=== PATIENT | male | born 1995 | race Caucasian/White ===

== ENCOUNTER 2019-12-22 17:44 | Emergency (ER) | payer BC ==
[2019-12-22] MEDS ORDERED: HALOPERIDOL LACTATE INJ 5 MG/1 ML VIAL IM ONE (19:37)
[2019-12-22] MEDS ORDERED: BENZTROPINE MESYLATE INJ 2 MG/2 ML AMPULE IM ONE (19:37)
--- NOTE | 2019-12-22 19:39 | ER Document Report ---
ED Psych Disorder / Suicide - General Chief Complaint: Psych Problem Stated Complaint: PSYCH ISSUE Time Seen by Provider: 12/22/19 18:58 Mode of Arrival: Ambulatory Information source: Patient Notes: 24-year-old male patient presents the emergency department with concerns for possible drug abuse. Patient's father brought patient here, patient's father reported to staff members that patient used to get high on cough and cold medication. His father states that he is acting similar to then. It is unknown if patient has any suicidal homicidal ideations as he is unable to be fully examined at this time. He is a flight of ideas, he keeps coming in and out of his room walking around yelling nonsensical things. Nursing staff tells me that patient has had previous hospitalization at [facility]. - Related Data Allergies/Adverse Reactions: No Known Allergies Allergy (Verified 12/22/19 19:01) Past Medical History - General Information source: Patient, Parent - Father - Social History Smoking Status: Current Every Day Smoker Frequency of alcohol use: None Drug Abuse: Marijuana, Other - synthetic drugs/cough medicine Family History: Reviewed & Not Pertinent Patient has homicidal ideation: No - Medical History Medical History: Negative Surgical Hx: Negative - Immunizations Immunizations up to date: Yes Review of Systems - Review of Systems -: Yes ROS unobtainable due to patient's medical condition Physical Exam - Vital signs Vitals: Temp Pulse Resp BP Pulse Ox 98.5 F 105 H 18 117/61 96 12/22/19 20:39 12/22/19 20:39 12/22/19 20:39 12/22/19 20:39 12/22/19 20:39 - Notes Notes: PHYSICAL EXAMINATION: GENERAL: Well-nourished and in no acute distress. HEAD: Atraumatic, normocephalic. EYES: Pupils equal round extraocular movements intact, conjunctiva are normal. ENT: Nares patent NECK: Normal range of motion LUNGS: No respiratory distress, lung sounds clear and equal bilaterally. Musculoskeletal: Normal range of motion NEUROLOGICAL: Normal speech, normal gait. PSYCH: Hyper, flight of ideas, pacing around the room in the hallway. SKIN: Warm, Dry, normal turgor, no rashes or lesions noted. Course - Re-evaluation Re-evalutation: 12/22/19 19:42 Unable to do a thorough physical examination on the patient at this time as patient is a flight of ideas and is very hyper and animated walking around his room and also out into the hallway. Medication orders placed. Patient will be given a physical examination as soon as safely able to. Orders placed for IVC. Psych team is initiating an IVC petition and will evaluate patient fully tomorr ow. 12/22/19 23:19 Patient is more calm now he has been resting comfortably with no acute distress. His potassium was 3. He did take the oral potassium as ordered. He is pending full psych evaluation in the morning. He is medically cleared at this time. - Vital Signs Vital signs: Temp Pulse Resp BP Pulse Ox 98.5 F 105 H 18 117/61 96 12/22/19 20:39 12/22/19 20:39 12/22/19 20:39 12/22/19 20:39 12/22/19 20:39 - Laboratory Result Diagrams: 12/22/19 20:20 12/22/19 20:20 Laboratory results interpreted by me: 12/22/19 20:20 Potassium 3.0 L* BUN 5 L Glucose 123 H Salicylates < 1.0 L Acetaminophen < 10 L Discharge - Discharge Clinical Impression: Bizarre behavior Condition: Stable Disposition: PSYCH HOSP/UNIT
--- NOTE | 2019-12-22 20:06 | PSYCHOLOGICAL NOTE ---
Psych Note - Psych Note Date seen by psych provider: 12/22/19 Time seen by psych provider: 17:45 - [facility] collateral at 1745. ED Nurse Collateral at 130. Observation at 1946. Psych Note: Patient presented to the Emergency Department this evening via POV/father for altered mental status after going to [facility] for inpatient hospitalization. [facility] admission staff (Eduardo) reported patient had dilated pupils and was unable to answer questions appropriately so was unable to complete their assessment. Father told [facility] staff patient "acted this way when he was abusing Dimethyltryptamine in the past." Patient shut himself in an Emergency Department room with cleaning staff, medical and security were immediately involved, got patient seated in chair in hallway and he started carrying on conversation with himself as if someone else were there. Patient appears to be under the influence of some substance which impairs insight, judgment and impulse control. Patient is a danger to self and others at this time. Observed patient in his ED room, sitting on side edge of bed, carrying on dialogue conversation as if talking with someone when he was the only person in the room. Clinical Presentation: Psychosis Medication recommendations made by the psychiatric medication provider, Dr. Ayan ASKEW., includes: Add Haldol 5MG PO/IM every 6 hours as needed for psychosis/agitation Add Cogentin 1MG PO/IM once daily to curb tremor side effects often associated with antipsychotic medications Impression/Plan: Recommendation for 24 Hour Petition for Evaluation given psychotic presentation. Consulted with Dr. Rasmussen regarding the management and care of patient. ED Physician in agreement with recommendations.
[2019-12-22 20:37] LABS: ABSOLUTE EOSINOPHILS # (AUTO) 0.1 10^3/uL (0.0-0.6); ABSOLUTE LYMPHOCYTES (AUTO) 2.3 10^3/uL (0.5-4.7); ABSOLUTE MONOCYTES (AUTO) 0.7 10^3/uL (0.1-1.4); ABSOLUTE NEUT (AUTO) 7.1 10^3/uL (1.7-8.2); BASOPHILS % (AUTO) 0.3 % (0-2); EOSINOPHILS % (AUTO) 0.6 % (0-6); HEMOGLOBIN 15.7 g/dL (13.5-17.0); LYMPHOCYTES % (AUTO) 22.5 % (13-45); MEAN CORPUSCULAR HEMOGLOBIN 30.6 pg (27.0-33.4); MEAN CORPUSCULAR HGB CONC 34.8 g/dL (32.0-36.0); MEAN CORPUSCULAR VOLUME 88 fl (80-97); MONOCYTES % (AUTO) 6.5 % (3-13); PLATELET COUNT 211 10^3/uL (150-450); RED BLOOD COUNT 5.12 10^6/uL (4.35-5.55); RED CELL DISTRIBUTION WIDTH 13.2 % (11.5-14.0); SEGMENTED NEUTROPHILS % (AUTO) 70.1 % (42-78); TOTAL CELLS COUNTED % (AUTO) 100 %; WHITE BLOOD COUNT 10.1 10^3/uL (4.0-10.5)
[2019-12-22 20:42] LABS: APPEARANCE,URINE CLEAR; BILIRUBIN,URINE NEGATIVE (NEGATIVE); COLOR,URINE YELLOW; GLUCOSE, URINE NEGATIVE (NEGATIVE); KETONES,URINE NEGATIVE (NEGATIVE); LEUKOCYTE ESTERASE,URINE NEGATIVE (NEGATIVE); NITRITE,URINE NEGATIVE (NEGATIVE); PROTEIN,URINE NEGATIVE (NEGATIVE); URINE SPECIFIC GRAVITY 1.006; UROBILINOGEN,URINE NEGATIVE mg/dL (<2.0)
[2019-12-22 20:54] LABS: URINE AMPHETAMINES SCREEN NEGATIVE; URINE BARBITURATES SCREEN NEGATIVE; URINE BENZODIAZEPINES SCREEN NEGATIVE; URINE COCAINE SCREEN NEGATIVE; URINE METHADONE SCREEN NEGATIVE; URINE PHENCYCLIDINE SCREEN NEGATIVE
[2019-12-22 20:55] LABS: URINE MARIJUANA (THC) SCREEN UNCONFIRMED POSITIVE
[2019-12-22 21:59] LABS: ALBUMIN 4.5 g/dL (3.5-5.0); ALKALINE PHOSPHATASE 80 U/L (38-126); ANION GAP 12 (5-19); ASPARTATE AMINO TRANSFERASE 35 U/L (17-59); BILIRUBIN,TOTAL 0.7 mg/dL (0.2-1.3); BLOOD UREA NITROGEN 5 mg/dL (7-20); CALCIUM 9.5 mg/dL (8.4-10.2); CARBON DIOXIDE 24 mmol/L (22-30); CHLORIDE 101 mmol/L (98-107); GLUCOSE 123 mg/dL (75-110); TOTAL PROTEIN 7.2 g/dL (6.3-8.2)
[2019-12-22 22:02] LABS: ACETAMINOPHEN < 10 ug/mL (10-30); ALCOHOL < 10 mg/dL (NONE DETECTED); SALICYLATE < 1.0 mg/dL (2.0-20.0)
[2019-12-22] MEDS ORDERED: POTASSIUM CHLORIDE 10 MEQ TABLET.ER PO ONE (22:06)
[2019-12-22] MEDS ORDERED: BENZTROPINE MESYLATE 1 MG TABLET PO PRN (23:27)
[2019-12-22] MEDS ORDERED: HALOPERIDOL 5 MG TABLET PO PRN (23:27)
[2019-12-23 06:39] LABS: ANION GAP 9 (5-19); BLOOD UREA NITROGEN 8 mg/dL (7-20); CALCIUM 9.5 mg/dL (8.4-10.2); CARBON DIOXIDE 29 mmol/L (22-30); CHLORIDE 101 mmol/L (98-107); GLUCOSE 96 mg/dL (75-110); POTASSIUM 3.3 mmol/L (3.6-5.0)
--- NOTE | 2019-12-23 09:57 | EKG REPORT ---
SEVERITY:- OTHERWISE NORMAL ECG - SINUS ARRHYTHMIA, RATE [id number] : Confirmed by: Hai Shanks MD 23-Dec-2019 09:56:08
--- NOTE | 2019-12-23 21:13 | ER Document Report ---
Doctor's Note Notes: 12/23/19 21:11 PHYSICAL EXAMINATION: GENERAL: Appears well, healthy, well-nourished, no acute distress. LUNGS: Equal breath sounds bilaterally and clear to auscultation. No wheezes rales or rhonchi. CARDIOVASCULAR: S1-S2, regular rate, regular rhythm. Radial pulses 2+, normal. ABDOMEN: Normoactive bowel sounds. Soft, nontender, no guarding, no rebound tenderness, and no masses palpated. PSYCH: Animated affect. Patient is asking for a cigarette. I educated the patient that smoking is not allowed here in the emergency department. I offered him a nicotine patch and he refused. Patient states that he wants to go home. Augmentations are for Haldol 5 mg IM or p.o. every 8 hours. They also would like him to be on Cogentin 1 mg IM or p.o. daily.
[2019-12-23] MEDS: HALOPERIDOL 5 MG TABLET PO SCH (22:02)
[2019-12-24 05:33] VITALS: BP 137/77
[2019-12-24] MEDS: HALOPERIDOL 5 MG TABLET PO SCH (06:55)
[2019-12-24] MEDS ORDERED: BENZTROPINE MESYLATE 1 MG TABLET PO SCH (10:00)
--- NOTE | 2019-12-24 11:38 | PSYCHOLOGICAL NOTE ---
Psych Note - Psych Note Date seen by psych provider: 12/24/19 Time seen by psych provider: 10:50 Psych Note: Reason for Consult: AMS Patient presented to the [facility] [place] [place] ED via POV (his father ) for altered mental status after going to [facility] for inpatient hospitalization. [facility] admission staff (Eduardo) reported patient had dilated pupils and was unable to answer questions appropriately so was unable to complete their assessment. Patient reports He has only been using THC and tobacco. He confirms he use to use other drugs but reports he has abstained for the last 2 1/2 years. He reports he has been having difficulty sleeping and eating; he states he needs help "relaxing." Patient quickly derails in his conversation with clinician and becomes confused. He attempts to answer questions but provided conflicting information ie "yesterday I saw something that scared me....I have no idea how to answer your question....I don't know I have seen anything that has scared me recently....I trust the doctors and what they think I need to do." Patient demonstrated increased agitation when he is unable to answer questions. He will not make eye contact. Thought processes are disorganized. attention and concentration is poor. Insight and judgment is currently impair (unclear cause ie mental health or unknown substance use). Patient is calm and attempts to engage appropriately. He denies suicidal and homicidal ideation. While patient was laying in stretcher with lights off, it does not seem as if the patient was asleep (he quickly acknowledged clinician and sat up). Chart review conducted: Toxicology reports findings; THC Clinical Presentation: Disorganized thought processes Psychosis; Probable hallucinations Medication recommendations made by the psychiatric medication provider, Dr. Ayan IRIZARRY, includes: Add Haldol 5MG PO/IM every 6 hours as needed for psychosis/agitation Add Cogentin 1MG PO/IM once daily to curb tremor side effects often associated with antipsychotic medications Impression/Plan: Patient is recommended to continue under IVC. Patient continues to present confused with disorganized thought processes. He attempted to engage but quickly becomes confused and unable to answer appropriately. While patient does not make eye contact; it currently does not appear he is experiencing hallucinations while clinician is in the room; however, there is concern the patient has been experiencing them on and off. Patient has been accepted to [facility]; transportation has been requested. Dr. Rasmussen was consulted on the care and management of this patient; attending physician is in agreement with the recommendations and disposition.
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
== END 2019-12-24 12:50 ==
LOC: ER 17:44
DX: R46.89 Other symptoms and signs involving appearance and behavior (principal); F12.10 Cannabis abuse, uncomplicated; F19.10 Other psychoactive substance abuse, uncomplicated; F17.200 Nicotine dependence, unspecified, uncomplicated
CPT/HCPCS: 93005; 99285; 96372; 36415; 80307 ×4; 85025; 80048; 80053; 81001; 93010; J0515; J1630